=== PATIENT | male | born 1965 | race American Indian/Alaskan Native ===

== ENCOUNTER 2018-12-28 18:34 | Emergency (ER) | payer MEDICARE ==
[2018-12-28 18:58] VITALS: BP 178/95
--- NOTE | 2018-12-28 19:40 | Emergency Department Report ---
Stated Complaint: HBP/MEDICATION REFILL Time Seen by Provider: 12/28/18 18:46 - HPI History of Present Illness: 53 y o male with PMH of HTN and DM presents with medication refill states he has been out of his meds pt had old bottles with him. states he is unable to get to his pcp as he just [facility], he denies any symptoms today - Exam Vital Signs: Vital Signs 12/28/18 18:54 Temperature 97.9 F Pulse Rate 70 Respiratory 18 Rate Blood Pressure 178/95 O2 Sat by Pulse 98 Oximetry MSE screening note: Focused history and physical exam performed. Due to findings the following was ordered: ED Disposition for MSE Clinical Impression: Medication refill Disposition: DC- TO HOME OR SELFCARE Is pt being admited?: No Does the pt Need Aspirin: No Condition: Stable Instructions: Chronic Hypertension (ED) Additional Instructions: follow up with pcp you have been given refferrals for GI and Opthamologist Take your medication daily as prescribed Prescriptions: metFORMIN [Glucophage] 500 mg PO BID #60 tablet hydroCHLOROthiazide [HCTZ] 25 mg PO QDAY #60 tablet Lisinopril [Zestril TAB] 20 mg PO QDAY #60 tablet Referrals: IMKE HAMILTONHUDSON MD VIET [Primary Care Provider] - 3-5 Days [facility] [Outside] - 3-5 Days [facility] [Outside] - 3-5 Days SHUN STEWART MD [Staff Physician] - 3-5 Days [facility] [Provider Group] - 3-5 Days Forms: Work/School Release Form(ED) Time of Disposition: 20:15
== END 2018-12-28 20:25 | disposition home or self-care (01) ==
LOC: ED 18:34
DX: I10 Essential (primary) hypertension (principal); E11.9 Type 2 diabetes mellitus without complications; Z76.0 Encounter for issue of repeat prescription
CPT/HCPCS: 99282